=== PATIENT | male | born 1960 | race Caucasian/White ===

== ENCOUNTER 2016-11-29 19:46 | Emergency (ER) | payer OTHER ==
[~2016-11-29] VITALS: Ht 175.3 cm; Wt 122.7 kg
[2016-11-29] MEDS ORDERED: EPIP0.3I2 (20:10)
[2016-11-29] MEDS ORDERED: ATOR40TA75 (20:10)
[2016-11-29] MEDS ORDERED: METF750T (20:10)
[2016-11-29] MEDS ORDERED: **hydrALAZINE HCL** 25 MG TAB PO ONE ×2 (22:30→23:45)
[2016-11-29 22:39] VITALS: BP 214/106
[2016-11-29 23:10] LABS: BASO % 0.3 % (0.0-1.0); EOS # 0.1 K/mm3 (0.0-0.50); EOS % 2.1 % (0.0-3.0); LARGE UNSTAINED CELL # 0.1 K/mm3 (0.0-0.4); LARGE UNSTAINED CELL % 1.7 % (0.0-4.0); MEAN CORPUSCULAR HEMOGLOBIN 32.1 pg (27.0-33.0); MEAN CORPUSCULAR HGB CONC 35.3 g/dl (32.0-36.5); MONO # 0.3 K/mm3 (0.0-0.8); MONO % 3.8 % (0.0-5.0); NEUTROPHILS # 4.1 K/mm3 (1.8-7.7); NEUTROPHILS % 62.1 % (36.0-66.0); PLATELET COUNT, AUTOMATED 220 k/mm3 (150-450); RED CELL DISTRIBUTION WIDTH 12.1 % (11.5-14.5); WHITE BLOOD COUNT 6.6 K/mm3 (4.0-10.0)
[2016-11-29 23:16] LABS: ANION GAP 6 MEQ/L (8-16); BLOOD UREA NITROGEN 14 MG/DL (7-18); CALCIUM LEVEL 8.5 MG/DL (8.5-10.1); CARBON DIOXIDE LEVEL 28 MEQ/L (21-32); CHLORIDE LEVEL 109 MEQ/L (98-107); CREATININE FOR GFR 0.69 MG/DL (0.70-1.30); GLOMERULAR FILTRATION RATE > 60.0 (>56); GLUCOSE, FASTING 128 MG/DL (70-105); MAGNESIUM LEVEL 1.7 MG/DL (1.8-2.4); POTASSIUM SERUM 3.8 MEQ/L (3.5-5.1); SODIUM LEVEL 143 MEQ/L (136-145)
[2016-11-29] MEDS ORDERED: HYDR25TAB PO (23:37)
[2016-11-29 23:40] VITALS: BP 168/56
[2016-11-29] MEDS ORDERED: hydroCHLOROthiazide 25 MG TAB PO ONE (23:45)
== END 2016-11-29 23:56 | disposition home or self-care (01) ==
LOC: M ED 19:46
DX: I10 Essential (primary) hypertension (principal); S30.860A Insect bite (nonvenomous) of lower back and pelvis, initial encounter; W57.XXXA Bitten or stung by nonvenomous insect and other nonvenomous arthropods, initial encounter; Y92.89 Other specified places as the place of occurrence of the external cause; Y93.89 Activity, other specified; Y99.8 Other external cause status; E10.9 Type 1 diabetes mellitus without complications; Z79.84 Long term (current) use of oral hypoglycemic drugs; Z88.0 Allergy status to penicillin

== ENCOUNTER 2019-05-29 11:00 | Emergency (ER) | payer OTHER ==
[~2019-05-29] VITALS: Ht 175.3 cm; Wt 102.9 kg
[~2019-05-29 11:00] MED LIST: ATOR40TA75; EPIP0.3I2; HYDR25TAB PO; METF750T36
[2019-05-29] MEDS ORDERED: PIOG1TAB37 PO (11:10)
[2019-05-29] MEDS ORDERED: NS 1,000 ML IV ONE ×2 (12:00→14:45)
--- NOTE | 2019-05-29 12:19 | REP ---
Clinical: Diabetic ketoacidosis . Comparison: None . Findings: The mediastinum and cardiac silhouette are stable and within normal limits for portable technique. The lung carlson are clear without acute consolidation, effusion, or pneumothorax. Skeletal structures are intact. Impression: No acute cardiopulmonary process appreciated. Electronically Signed by Dani Guardado MD 05/29/2019 12:11 P
[2019-05-29 12:38] LABS: VENOUS BASE EXCESS -5.2 (-2.0-2.0); VENOUS HCO3 20.9 MEQ/L (23.0-27.0); VENOUS PARTIAL PRESSURE CO2 42.6 mmHg (38.0-50.0); VENOUS PARTIAL PRESSURE O2 40.2 mmHg (30.0-50.0); VENOUS PH 7.308 UNITS (7.330-7.430); VENOUS STANDARD HCO3 19.6 MEQ/L; VENOUS TOTAL CO2 22.2 MEQ/L (24.0-28.0)
[2019-05-29 12:51] LABS: BASO % 0.4 % (0.0-1.0); EOS % 0.1 % (0.0-3.0); HEMOGLOBIN 17.2 g/dl (13.5-17.5); LYMPH # 1.4 10^3/uL (1.5-5.0); LYMPH % 17.5 % (24.0-44.0); MEAN CORPUSCULAR HEMOGLOBIN 31.3 pg (27.0-33.0); MEAN CORPUSCULAR HGB CONC 34.4 g/dl (32.0-36.5); MEAN CORPUSCULAR VOLUME 90.9 fl (80.0-96.0); MONO # 0.4 10^3/uL (0.0-0.8); MONO % 5.2 % (0.0-5.0); NEUTROPHILS # 6.1 10^3/uL (1.5-8.5); NEUTROPHILS % 76.4 % (36.0-66.0); PLATELET COUNT, AUTOMATED 182 10^3/uL (150-450)
[2019-05-29 13:44] LABS: HEMOGLOBIN A1c 13.4 %
[2019-05-29 14:17] LABS: OSMOLALITY SERUM 301 MOSM/KG (275-295)
[2019-05-29 14:21] LABS: ALBUMIN 3.5 GM/DL (3.2-5.2); ALT/SGPT 26 U/L (12-78); BILIRUBIN,DIRECT 0.2 MG/DL (0.0-0.2); BILIRUBIN,TOTAL 0.6 MG/DL (0.2-1.0); BLOOD UREA NITROGEN 15 MG/DL (7-18); CALCIUM LEVEL 8.6 MG/DL (8.5-10.1); CARBON DIOXIDE LEVEL 23 MEQ/L (21-32); CHLORIDE LEVEL 100 MEQ/L (98-107); CK-MB VALUE MASS 1.6 NG/ML (<3.6); CPK CREATINE PHOSPHOKINASE 101 U/L (39-308); CREATININE FOR GFR 0.98 MG/DL (0.70-1.30); GLOMERULAR FILTRATION RATE > 60.0 (>56); GLUCOSE, FASTING 363 MG/DL (70-100); LIPASE 114 U/L (73-393); MAGNESIUM LEVEL 2.1 MG/DL (1.8-2.4); MB/CK RELATIVE INDEX 1.58 (< OR =4); PHOSPHORUS LEVEL 3.6 MG/DL (2.5-4.9); POTASSIUM SERUM 4.3 MEQ/L (3.5-5.1); SODIUM LEVEL 136 MEQ/L (136-145); TOTAL PROTEIN 6.8 GM/DL (6.4-8.2); TROPONIN I < 0.02 NG/ML (< 0.10)
[2019-05-29 14:22] LABS: ACETONE/KETONE > 46.00 MG/DL (<2.81)
[2019-05-29] MEDS ORDERED: HumaLOG INSULIN (NovoLOG) PER UNIT SC STA (14:34)
[2019-05-29] MEDS ORDERED: METF10004 PO (16:26)
[2019-05-29 16:43] VITALS: BP 133/66
--- NOTE | 2019-05-30 05:35 | ECGEPIP ---
[facility] - ED Test Date: 2019-05-29 Pat Name: GLENNY CUNNINGHAM Department: Room: - Gender: Male Box Nailer: : 1960 Requested By: LESTER MADERA Order Number: [id number] Reading MD: Charles Hays Measurements Intervals [place] Rate: 83 P: 64 CA: 159 QRS: 55 QRSD: 89 T: -20 QT: 351 QTc: 415 Interpretive Statements SINUS RHYTHM NSTTW ABNORMALITIES NO PRIORS FOR COMPARISON Electronically Signed on 05-30-2019 5:35:39 EDT by Charles Hays
== END 2019-05-29 16:45 | disposition home or self-care (01) ==
LOC: M ED 11:00
DX: E11.65 Type 2 diabetes mellitus with hyperglycemia (principal); I10 Essential (primary) hypertension; Z79.84 Long term (current) use of oral hypoglycemic drugs; Z79.899 Other long term (current) drug therapy; Z88.0 Allergy status to penicillin; Z91.030 Bee allergy status